=== PATIENT | male | born 1990 | race Caucasian/White ===

== ENCOUNTER 2018-01-06 09:36 | Emergency (ER) | payer OTHER ==
[~2018-01-06] VITALS: Ht 177.8 cm; Wt 127.0 kg
[~2018-01-06 09:36] MED LIST: CARAFATE 1 GM TA1 G1 PO; HYDROCODONE-AP1 EAC6 PO; NOHOMEMEDICATIONS; ZOFRAN ODT4 MG PO
[2018-01-06 10:16] LABS: ABSOLUTE EOSINOPHILS 0.1 thou/uL (0.0-0.7); ABSOLUTE LYMPHOCYTES 2.9 thou/uL (0.8-5.3); ABSOLUTE MONOCYTES 0.8 thou/uL (0.0-1.2); ABSOLUTE NEUTROPHILS 2.9 thou/uL (1.6-8.1); BASOPHILS 0.7 %; EOSINOPHILS 0.8 %; HEMATOCRIT 47.1 % (42.0-52.0); HEMOGLOBIN 16.3 gm/dL (14.0-18.0); LYMPHOCYTES 42.7 %; MCH 32.1 pg (26.0-34.0); MCHC 34.6 g/dL (28.0-37.0); MCV 92.7 fL (80.0-100.0); MPV 7.1 fl. (7.2-11.1); NUCLEATED RBCS 0 /100WBC; PLATELET COUNT* 146 thou/uL (150-400); POLYS 43.8 %; RBC 5.08 mil/uL (4.50-6.00); RDW-CV 13.8 % (10.5-14.5); WBC 6.7 thou/uL (4.0-11.0)
[2018-01-06 10:24] LABS: CALCIUM 9.2 mg/dL (8.5-10.1); CREATININE 0.8 mg/dL (0.6-1.3); POTASSIUM 3.3 mmol/L (3.5-5.1)
[2018-01-06 10:28] LABS: ALBUMIN 4.1 g/dL (3.4-5.0); TOTAL BILIRUBIN 1.4 mg/dL (<0.1-1.0); TOTAL PROTEIN 8.6 g/dL (6.4-8.2)
[2018-01-06 11:52] VITALS: BP 150/94
--- NOTE | 2018-01-06 17:59 | EKG ---
[place] [address] ELECTROCARDIOGRAM REPORT Name: JOE MAHONEY [facility] [id number] Admission: 01/06/18 Attend Phys: Discharge: 01/06/18 Date of : 88 Report #: [id number] THIS REPORT FOR: //name// [facility] ED Test Date: 2018-01-06 Test Time: 09:44:14 Pat Name: JOE MAHONEY Department: Room: Gender: M [employer]uler: : 1990 Requested By: Jose Alva Order Number: [id number] MD: Chidi Alfaro Measurements Intervals Massey Rate: 84 P: 26 IL: 146 QRS: 15 QRSD: 82 T: 33 QT: 347 QTc: 411 Interpretive Statements Sinus rhythm Baseline wander in lead(s) V2 No previous ECG available for comparison Electronically Signed On 01-06-2018 17:59:02 CDT by Chidi Alfaro [email or web address] <ELECTRONICALLY SIGNED> By: Chidi Alfaro MD, [facility] 01/06/18 1759 0944 0944 Chidi Alfaro MD, FACC /EPI
== END 2018-01-06 11:56 | disposition home or self-care (01) ==
LOC: M.ERS 09:36
PROVIDERS: Family Medicine
DX: K80.20 Calculus of gallbladder without cholecystitis without obstruction (principal); F17.210 Nicotine dependence, cigarettes, uncomplicated; Z88.6 Allergy status to analgesic agent